=== PATIENT | male | born 1990 | race Caucasian/White ===

== ENCOUNTER 2017-08-14 11:08 | Emergency (ER) | payer SELFPAY ==
[2017-08-14 11:23] VITALS: TEMP 98.1; O2SAT 95
--- NOTE | 2017-08-14 12:43 | ED.PDOC ---
History of Present Illness - General Chief Complaint: Respiratory Problem Stated Complaint: Cough, congestion Time Seen by Provider: 08/14/17 11:16 Source: patient Exam Limitations: no limitations - History of Present Illness Initial Comments: The patient is a 27-year-old male presenting to the emergency room secondary to 2 days of symptoms of malaise, low-grade fevers, sore throat, runny nose, cough, nausea with a few episodes of vomiting and a couple of episodes of diarrhea. Multiple family members have had similar symptoms. No syncope or near-syncope. No chest pain. Vital signs are actually normal here today. Timing/Duration: unsure Severity: moderate Improving Factors: nothing Worsening Factors: nothing Associated Symptoms: cough, fever/chills, loss of appetite, malaise, nausea/ vomiting Allergies/Adverse Reactions: Allergies NO KNOWN ALLERGY Allergy (Verified 08/14/17 11:21) Home Medications: Ambulatory Orders Ondansetron [Zofran Odt] 4 mg PO Q4H PRN #10 tab 08/14/17 Review of Systems - Review of Systems Constitutional: States: fever, malaise EENTM: States: nose congestion, throat pain Respiratory: States: cough Cardiology: States: no symptoms reported Gastrointestinal/Abdominal: States: diarrhea, nausea, vomiting Musculoskeletal: States: no symptoms reported Skin: States: no symptoms reported Neurological: States: headache - mild Endocrine: States: no symptoms reported All other Systems: No Change from Baseline Past Medical History (General) - Patient Medical History Hx Stroke: No Hx Congestive Heart Failure: No Hx Diabetes: No Surgical History: no surgical history - Vaccination History Hx Influenza Vaccination: No Hx Pneumococcal Vaccination: No - Social History Hx Tobacco Use: Yes Family Medical History - Family History Father Family History: No Known Living Status: Still Living Physical Exam - Physical Exam General Appearance: Alert, Comfortable, No apparent distress Eye Exam: bilateral normal Ears, Nose, Throat: hearing grossly normal, nasal congestion, pharyngeal erythema Neck: full range of motion, supple Respiratory: lungs clear, normal breath sounds Cardiovascular/Chest: normal peripheral pulses, regular rate, rhythm, no edema Peripheral Pulses: radial,right: 2+, radial,left: 2+, dorsalis pedis,right: 2+, dorsalis pedis,left: 2+ Gastrointestinal/Abdominal: non tender, soft Rectal Exam: deferred Back Exam: no CVA tenderness, no vertebral tenderness Extremity: normal range of motion, non-tender, no pedal edema, normal capillary refill Neurologic: manager integrity II-XII nml as tested, alert, normal mood/affect, oriented x 3 Skin Exam: other - no obvious rash Comments: Vital Signs - 24 hr 08/14/17 11:21 Temperature 98.1 F Pulse Rate [ 85 Left Radial] Respiratory 20 Rate Blood Pressure 119/71 [Left Arm] O2 Sat by Pulse 95 Oximetry Progress - Progress Progress: 08/14/17 12:43 the patient is a 27-year-old male presenting to the emergency room with what appears to be simply a viral syndrome. Rapid flu and rapid strep were negative. Lungs are clear. The patient will be written for some Zofran for as needed use to control nausea and vomiting to allow him to remain hydrated. He can alternate Tylenol and Motrin to help reduce generalized symptoms. ER warnings were given for any significant worsening. - Results/Orders Results/Orders: apid flu and rapid strep were negative. Departure - Departure Clinical Impression: Viral syndrome Disposition: Discharge to Home or Self Care Condition: Fair Departure Forms: ED Discharge - Pt. Copy, Patient Portal Self Enrollment Instructions: DI for Viral Syndrome Diet: regular diet Activity: increase activity as tolerated Prescriptions: Ondansetron [Zofran Odt] 4 mg PO Q4H PRN #10 tab PRN Reason: Vomiting Home Medications: Ambulatory Orders Ondansetron [Zofran Odt] 4 mg PO Q4H PRN #10 tab 08/14/17 Additional Instructions: the patient is a 27-year-old male presenting to the emergency room with what appears to be simply a viral syndrome. Rapid flu and rapid strep were negative. Lungs are clear. The patient will be written for some Zofran for as needed use to control nausea and vomiting to allow him to remain hydrated. He can alternate Tylenol and Motrin to help reduce generalized symptoms. ER warnings were given for any significant worsening.
[2017-08-14 12:55] VITALS: BP 120/72
== END 2017-08-14 12:55 | disposition home or self-care (01) ==
LOC: ER 11:08
DX: B34.9 Viral infection, unspecified (principal)

== ENCOUNTER → 2017-08-27 | Emergency (ER) | payer SELFPAY ==
[~2017-08-27] MED LIST: PROMETHAZINE HCL INJ 12.5 MG in SODIUM CHLORIDE 0.9% 50ML 50 ML IVPB ONE; PROMETHAZINE HCL INJ 25 MG/ML VIAL ONE; SODIUM CHLORIDE 0.9% 1000ML 1,000 ML IVS ONE; SODIUM CHLORIDE 0.9% 50ML 50 ML ONE
[2017-08-27 12:58] VITALS: TEMP 98.6
--- NOTE | 2017-08-27 13:15 | ED.PDOC ---
History of Present Illness - General Chief Complaint: GI Problem Stated Complaint: n/v/d for 2 weeks Time Seen by Provider: 08/27/17 13:11 Source: patient Exam Limitations: no limitations - History of Present Illness Timing/Duration: getting worse Severity: moderate Improving Factors: nothing Worsening Factors: nothing Allergies/Adverse Reactions: Allergies NO KNOWN ALLERGY Allergy (Verified 08/14/17 11:21) Home Medications: Ambulatory Orders Ondansetron [Zofran Odt] 4 mg PO Q4H PRN #10 tab 08/14/17 Metoclopramide Tab [Reglan Tab] 10 mg PO QID PRN #20 tab 08/27/17 Review of Systems - Review of Systems Constitutional: Denies: chills, fever EENTM: States: no symptoms reported Respiratory: Denies: cough, short of breath Cardiology: Denies: chest pain, palpitations Gastrointestinal/Abdominal: States: abdominal pain, diarrhea - WATERY, NO BLOOD , nausea, vomiting Genitourinary: Denies: dysuria, frequency, hematuria Musculoskeletal: Denies: back pain, muscle pain, neck pain Skin: States: no symptoms reported Neurological: States: no symptoms reported Endocrine: States: no symptoms reported Past Medical History (General) - Patient Medical History Hx Seizures: No Hx Stroke: No Hx Dementia: No Hx Asthma: No Hx of COPD: No Hx Cardiac Disorders: No Hx Congestive Heart Failure: No Hx Pacemaker: No Hx Hypertension: No Hx Thyroid Disease: No Hx Diabetes: No Hx Gastroesophageal Reflux: No Hx Renal Disease: No Hx of HIV: No Hx MRSA: No Surgical History: no surgical history - Vaccination History Hx Influenza Vaccination: No Hx Pneumococcal Vaccination: No - Social History Hx Tobacco Use: Yes - Triage Comment ED Triage Comment: Pt states he has had nausea, vomiting, and diarrhea for the past 2 weeks and is not getting better. Family Medical History - Family History Father Family History: No Known Living Status: Still Living Physical Exam - Physical Exam General Appearance: No apparent distress, Well Developed, Well Nourished Eye Exam: bilateral normal Ears, Nose, Throat: normal ENT inspection, normal pharynx Neck: non-tender, full range of motion, supple Respiratory: lungs clear, normal breath sounds Cardiovascular/Chest: regular rate, rhythm, no murmur Gastrointestinal/Abdominal: non tender, soft, no organomegaly, abnormal bowel sounds - HYPOACTIVE Extremity: normal range of motion Neurologic: alert, normal mood/affect Skin Exam: normal color, warm/dry Lymphatic: no adenopathy Progress - Progress Progress: 08/27/17 1525 FEELS BETTER. NO FURTHER VOMITING. DOES NOT WANT PHENE - EKG/XRAY/CT XRAY: AAS, MAYI, NO FREE AIR Departure - Departure Clinical Impression: Gastroenteritis Time of Disposition: 15:30 Disposition: Discharge to Home or Self Care Condition: Good Departure Forms: ED Discharge - Pt. Copy, Patient Portal Self Enrollment Prescriptions: Metoclopramide Tab [Reglan Tab] 10 mg PO QID PRN #20 tab PRN Reason: Vomiting Home Medications: Ambulatory Orders Ondansetron [Zofran Odt] 4 mg PO Q4H PRN #10 tab 08/14/17 Metoclopramide Tab [Reglan Tab] 10 mg PO QID PRN #20 tab 08/27/17
[2017-08-27 14:05] VITALS: BP 107/66; O2SAT 96
--- NOTE | 2017-08-27 22:00 | RAD ---
EXAM DESCRIPTION: Chest,1 View CLINICAL HISTORY: 27-year-old, male, nausea, vomiting, and diarrhea. COMPARISON: None. IMPRESSION: Single portable frontal view of the chest. Cardiac silhouette and pulmonary vascularity are within normal limits. Mild peribronchial thickening, particularly of the lower lung zones bilaterally, is nonspecific. Bronchitis can have this appearance. Lungs are clear without definite focal consolidative infiltrates. Bilateral costophrenic angles are sharp. The tips of the lung apices are not included in the imaged field of view. No acute osseous abnormality. Electronically signed by: Deuce Pineda MD 08/27/2017 2:29 PM [facility]
--- NOTE | 2017-08-27 22:00 | RAD ---
EXAM DESCRIPTION: Abdomen Flat Upright CLINICAL HISTORY: 27 years Male, nausea, vomiting, diarrhea COMPARISON: None. IMPRESSION: Flat and upright frontal views of the abdomen. There is a nonspecific, nonobstructive bowel gas pattern. No evidence for pneumatosis intestinalis, portal venous gas, or free air under the diaphragm. No distended loops of bowel. Moderate amount of fecal material is present within the ascending colon and transverse colon. No organomegaly. No pathologic calcifications. No acute osseous abnormality. Electronically signed by: Deuce Pineda MD 08/27/2017 2:24 PM [facility]
== END | disposition home or self-care (01) ==
LOC: ER 12:31
DX: K52.9 Noninfective gastroenteritis and colitis, unspecified (principal)
CPT/HCPCS: 36415; 71010; 74010; 80053; 85025; J7030